=== PATIENT | female | born 1995 | race Caucasian/White ===

== ENCOUNTER 2017-02-28 20:09 | Inpatient (IN) | payer OTHER ==
[2017-02-28 21:22] LABS: HCT 36.3 % (37.0-47.0); HGB 12.1 g/dl (12.5-16.0); MCH 24.7 pg (25.0-31.0); MCHC 33.3 g/dL (32.0-36.0); MCV 74.2 fL (78.0-100.0); MPV 9.6 fL (6.0-9.5); RBC 4.89 M/uL (4.20-5.40); WBC 12.8 K/uL (4.0-10.5)
[2017-02-28 21:23] LABS: BILIRUBIN NEGATIVE (NEGATIVE); BLOOD NEGATIVE Ery/uL (NEGATIVE); CLARITY HAZY (CLEAR); COLOR STRAW (YELLOW); GLUCOSE (U) NORMAL (NORMAL); KETONE (U) NEGATIVE (NEGATIVE); LEUKOCYTES TRACE Leu/uL (NEGATIVE); NITRITE NEGATIVE (NEGATIVE); PROTEIN TRACE (LOW) mg/dL (NEGATIVE); SPECIFIC GRAVITY >=1.030 (1.001-1.030); UROBILINOGEN 0.2 mg/dL (0.2-1.0); pH 5.5 (5.0-9.0)
[2017-02-28 21:29] LABS: BACTERIA 1+; MUCOUS LARGE; URINARY RBC RARE
[2017-02-28 21:35] LABS: BENZODIAZEPINES NEGATIVE (NEGATIVE)
[2017-02-28 21:36] LABS: AMPHETAMINES NEGATIVE (NEGATIVE); BARBITURATES NEGATIVE (NEGATIVE); COCAINE NEGATIVE (NEGATIVE); MARIJUANA (THC) POSITIVE (NEGATIVE); METHADONE NEGATIVE (NEGATIVE); TRICYCLIC ANTIDEPRESSANT NEGATIVE (NEGATIVE)
[2017-03-01 18:22] LABS: HCT 32.6 % (37.0-47.0); HGB 10.7 g/dl (12.5-16.0); MCH 24.8 pg (25.0-31.0); MCHC 32.8 g/dL (32.0-36.0); MCV 75.5 fL (78.0-100.0); MPV 9.4 fL (6.0-9.5); RBC 4.32 M/uL (4.20-5.40); RDW 15.7 % (11.5-14.0); WBC 16.4 K/uL (4.0-10.5)
== END 2017-03-03 14:12 | disposition home or self-care (01) | DRG 775 ==
LOC: FOB 20:09
PROVIDERS: ADMIT Obstetrics & Gynecology
PROC: 3E0P7GC Introduction of Other Therapeutic Substance into Female Reproductive, Via Natural or Artificial Opening (ICD-10-PCS; 2017-02-28)
PROC: 10E0XZZ Delivery of Products of Conception, External Approach (ICD-10-PCS; principal; 2017-03-01)
PROC: 0HQ9XZZ Repair Perineum Skin, External Approach (ICD-10-PCS; 2017-03-01)
DX: O48.0 Post-term pregnancy (principal); D62 Acute posthemorrhagic anemia; O99.324 Drug use complicating childbirth; O70.0 First degree perineal laceration during delivery; Z3A.40 40 weeks gestation of pregnancy; Z37.0 Single live birth; F12.90 Cannabis use, unspecified, uncomplicated; O99.03 Anemia complicating the puerperium
CPT/HCPCS: 36415; 80305; 81001; 88307; J2300; J2310